=== PATIENT | female | born 1940 | race Caucasian/White ===

== ENCOUNTER 2017-09-12 08:53 | Emergency (ER) | payer MEDICARE, OTHER ==
[2017-09-12 09:26] LABS: Hematocrit 49.2 % (37.0-47.0); Hemoglobin 16.6 gm/dL (12.5-16.0); Mean Corpuscular Hemoglobin 28.3 pg (27-31); Mean Corpuscular Hgb Conc 33.7 g/dl (32-36); Mean Platelet Volume 10.3 fl (6.0-9.5); Neutrophil # 7.5 K/mm3 (1.3-6.0); Neutrophil % 77.8 % (42-75.0); Platelet Count 260 K/mm3 (150-450); Red Blood Count 5.86 M/mm3 (4.2-5.4); Red Cell Distribution Width 13.4 % (11.5-14.0); White Blood Count 9.6 K/mm3 (4.0-10.5)
[2017-09-12 09:43] LABS: Albumin * 3.8 gm/dl (3.4-5.0); Anion Gap 13.4 mmol/L (6.8-13.8); Bilirubin, Total 0.7 mg/dL (0.0-1.1); CRP 0.3 mg/dL (0.0-0.9); Ca. Corrected For Albumin 9.2 mg/dL (8.4-10.2); Calcium * 9.4 mg/dL (7.9-10.9); Potassium 4.4 mmol/L (3.4-4.6); Total Protein 7.6 gm/dL (6.2-8.2)
[2017-09-12 09:44] VITALS: BP 122/61
--- NOTE | 2017-09-12 10:13 | ERNOTE ---
Dizziness ER Record Presenting Symptoms: dizziness Time Seen by Provider: 09/12/17 09:45 Source: patient Exam Limitations: no limitations Immunizations: IMMUNIZATION HX Immunizations Up to Date Yes History of Influenza Vaccine Yes Allergies/Adverse Reactions: Allergies Allergy/AdvReac Type Severity Reaction Status Date / Time aspirin Allergy Verified 09/12/17 09:10 Home Medications: HOME MEDICATIONS Amlodipine Besylate 10 mg PO DAILY 09/12/17 [Last Taken Unknown] Furosemide 20 mg PO DAILY 09/12/17 [Last Taken Unknown] Insulin Glargine,Hum.rec.anlog [Lantus] 45 units SC HS 09/12/17 [Last Taken Unknown] Levothyroxine Sodium [Levoxyl] 75 mcg PO DAILY 09/12/17 [Last Taken Unknown] Pravastatin Sodium 40 mg PO DAILY 09/12/17 [Last Taken Unknown] Spironolactone [Aldactone] 25 mg PO DAILY 09/12/17 [Last Taken Unknown] - History of Present Illness Narrative: Patient has been dizzy for 2-3 days, the symptoms are intermittent with movement , spinning sensation, no falls, is able to get around. 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 She was hospitalized for about a year and ended up with a trach. She is currently back home Timing and Duration: intermittent Severity: max: mild Associated Symptoms: Present: hearing loss - chronic, no new, nausea, headache - mild frontal. Absent: ringing/roaring in ear, ear pain, vomiting, weakness, numbness, sweating, light headedness Sense of movement: Present: spinning Fainted/near fainted while:: Absent: standing Decreased ability to stand/walk:: Absent: off balance Usually:: Present: uses a cane/walker Modifying Factors - (Improves): Reports: other - holding still Modifying Factors - (Worsens): Reports: changing position, movement of head Prior Treament: Reports: similar symptoms before. Denies: recently seen Review of Systems - Review of Systems Constitutional: Absent: recent illness, fever EYE: Absent: double vision, vision changes ENT: Absent: nose congestion, sore throat Respiratory: Absent: shortness of breath Cardiology: Absent: chest pain Gastrointestinal/Abdominal: Present: nausea. Absent: vomiting, diarrhea, abdominal pain Genitourinary: Present: no symptoms reported Musculoskeletal: Absent: back pain, neck pain Skin: Absent: rash Neurological: Present: See HPI, headache. Absent: weakness, numbness - Patient's Past Medical History Patient History - Medical: Diabetes Type 2 Insulin Dependent Patient History - Cardiac/Respiratory: Cardiac Arrest, Hypertension, Hyperlipidemia Patient History - Cancer: No Hx of Cancer Patient History - Surgical Procedures: Cholecystectomy, Other - Social History Living Situations: alone Smoking Status: Never smoker Have you smoked in the past 12 months: No - Immunizations Immunizations Up to Date: Yes History of Influenza Vaccine: Yes Physical Exam - Physical Exam General Appearance: Present: wd/wn, alert, no apparent distress Head Exam: Present: normal inspection, no evidence of injury Eye Exam: Normal inspection: bilateral, PERRL: bilateral, EOMI: bilateral Ears, Nose, Throat: Present: normal ENT inspection, normal pharynx Neck: Present: normal inspection, nontender, supple, full range of motion Respiratory: Present: no respiratory distress, normal breath sounds, no accessory muscle use, lungs clear Cardiovascular/Chest: Present: regular rate, rhythm, no murmur Gastrointestinal/Abdominal: Present: nontender, nondistended Back Exam: Present: normal inspection, no vertebral tenderness Neurological Exam: Present: alert, oriented, normal mood/affect, no motor/ sensory deficits, discount clerk II-XII nml as tested, normal cerebellar test, other - new hallpike positive to left side Skin Exam: Present: normal color, warm/dry ED Progress - Vital Signs Patient's Vital Signs:: I have reviewed the patient's vital signs. Vital Signs: Vital Signs 09/12/17 09/12/17 09:07 09:43 Temperature 36.7 C Pulse Rate 78 72 Respiratory 14 16 Rate Blood Pressure 151/62 122/61 O2 Sat by Pulse 95 94 Oximetry - Progress/Reassessment Chief Complaint: Dizziness Progress Note-Subjective: 09/12/17 10:08 discussed diagnosis with patient and friend as she has been getting around okay at home, will hold of on meclizine as it would interfere with PT Departure Clinical Impression: Vertigo - Departure Disposition: Home self-care Condition: Good Instructions: Vertigo, [id number] Additional Instructions: you should receive a call tomorrow morning to get set up with physical therapy to treat your dizziness Referrals: Haven Jimenes, LIC[employer]ED [employer]PLICATOR [Primary Care Provider] -
== END 2017-09-12 10:10 | disposition home or self-care (01) ==
LOC: ER 08:53
DX: R42 Dizziness and giddiness (principal); E11.9 Type 2 diabetes mellitus without complications; Z79.4 Long term (current) use of insulin; I10 Essential (primary) hypertension; E78.5 Hyperlipidemia, unspecified